=== PATIENT | female | born 1930 | race Caucasian/White ===

== ENCOUNTER 2018-03-19 14:30 | Inpatient (IN) | payer MEDICARE, OTHER ==
[~2018-03-19] VITALS: Ht 157.5 cm; Wt 76.7 kg
[2018-03-19 22:05] VITALS: BP 144/44
--- NOTE | 2018-03-19 22:30 | NUR ---
Admitted patient from [place] with diagnosis UTI and acute renal failure. Patient arrived @0 via gurney by ambulans. Family was with her. Condition fair. VS: T: 97.6, OK:72, RR: 18, O2 SAT: 93%, BP: 144/44. Dr. So was aware of admission. Medication reconciliation done, called [facility] on-call doctor, but Dr. Perkins preferred to do it at morning. MRSA swap done, physical assessment done. History taken from the family. Pictures taken and placed in the chart. Oriented patient to the unit. safety precaution maintained, Fall prevention observed. Bed in low position, side rails up x3, alarm and brake on. Call light and personal belonging within reach. Continue to monitor.
[2018-03-19] MEDS ORDERED: LOPE2CAP PO (23:46)
[2018-03-19] MEDS ORDERED: ACET-73 PO (23:46)
[2018-03-19] MEDS ORDERED: BISM262O49 PO (23:46)
[2018-03-19] MEDS ORDERED: ASCO500C18 PO (23:46)
[2018-03-19] MEDS ORDERED: DOCU250C14 PO (23:46)
[2018-03-19] MEDS ORDERED: CARB25TA3 PO (23:46)
[2018-03-19] MEDS ORDERED: MAGN400O6 PO (23:46)
[2018-03-19] MEDS ORDERED: ATOR20TA PO (23:46)
[2018-03-19] MEDS ORDERED: ALPH1TAB9 PO (23:46)
[2018-03-19] MEDS ORDERED: LEVO25TA9 PO (23:46)
[2018-03-19] MEDS ORDERED: LINA5TAB PO (23:46)
[2018-03-19] MEDS ORDERED: FLUT1BLS IH (23:46)
[2018-03-19] MEDS ORDERED: BLOO-668 IN (23:46)
[2018-03-19] MEDS ORDERED: CALC500T13 PO (23:46)
[2018-03-19] MEDS ORDERED: CRAN450T9 PO (23:46)
[2018-03-19] MEDS ORDERED: ASPI-605 PO (23:46)
[2018-03-19] MEDS ORDERED: GUAI600T53 PO (23:46)
[2018-03-19] MEDS ORDERED: ESOM40CA PO (23:46)
[2018-03-19] MEDS ORDERED: ERGO500014 PO (23:46)
[2018-03-19] MEDS ORDERED: CARB-93 PO ×2 (23:46)
[2018-03-19] MEDS ORDERED: IPRA4AER IH (23:46)
[2018-03-19] MEDS ORDERED: GUAI100S4 PO (23:46)
[2018-03-19] MEDS ORDERED: BISM262O28 PO (23:46)
[2018-03-19] MEDS ORDERED: ESTR42.5 VG (23:46)
[2018-03-19] MEDS ORDERED: FURO20TA4 PO (23:46)
[2018-03-19] MEDS ORDERED: TRAM50TA2 PO (23:47)
[2018-03-19] MEDS ORDERED: ROPI1TAB2 PO (23:47)
[2018-03-19] MEDS ORDERED: VITA-287 PO (23:47)
[2018-03-19] MEDS ORDERED: MAGN250T37 PO (23:47)
[2018-03-19] MEDS ORDERED: POLY15DR27 OP (23:47)
[2018-03-19] MEDS ORDERED: ROPI0.5T PO (23:47)
[2018-03-19] MEDS ORDERED: MELA3TAB PO (23:47)
[2018-03-19] MEDS ORDERED: VIT1CAPS44 PO (23:47)
[2018-03-19] MEDS ORDERED: SIME80TA14 PO ×2 (23:47)
[2018-03-19] MEDS ORDERED: NAPR220T PO (23:47)
[2018-03-19] MEDS ORDERED: ONDA4TAB5 GT (23:47)
[2018-03-20] MEDS ORDERED: Z GUARD REMEDY PASTE 57 GM TUBE TOP PRN (00:15)
--- NOTE | 2018-03-20 06:16 | NUR ---
End of the shift note Patient was stable throughout the shift but did not have a good sleep last night, was confused and tried to get out of bed. No sign of acute distress or SOB noted. No Complain of pain. Safety measures maintained. All needs anticipated promptly. Fall precaution maintained. Bed in low position, brake and alarm on, side rails up x3. Call light and personal belongings within reach. Continue to monitor and will endorse to the day shift nurse accordingly.
[2018-03-20 06:30] VITALS: BP 162/64
[2018-03-20 08:16] VITALS: BP 154/75
[2018-03-20] MEDS ORDERED: BISMUTH SUBSALICYLATE 262 MG/15 ML UDC PO PRN ×2 (10:15)
[2018-03-20] MEDS ORDERED: NAPROXEN SODIUM 220 MG PO SCH (10:15)
[2018-03-20] MEDS ORDERED: LOPERAMIDE HCL 2 MG CAPSULE PO PRN (10:15)
[2018-03-20] MEDS ORDERED: GUAIFENESIN SUGAR FREE 100 MG/5 ML UDC PO PRN (10:15)
[2018-03-20] MEDS ORDERED: GUAIFENESIN LA 600 MG TABLET.SA PO PRN (10:15)
[2018-03-20] MEDS ORDERED: ONDANSETRON HCL 4 MG TABLET GT PRN (10:15)
[2018-03-20] MEDS ORDERED: SIMETHICONE 80 MG TAB.CHEW PO PRN (10:15)
[2018-03-20] MEDS ORDERED: ALPHA D GALACTOSIDASE 150 UNIT PO PRN (10:15)
[2018-03-20] MEDS ORDERED: DEXTROSE 50% 50 ML DISP.SYRIN IV PRN ×2 (10:30→12:30)
[2018-03-20] MEDS: ERGOCALCIFEROL 50,000 UNIT CAPSULE PO SCH (11:00)
[2018-03-20] MEDS: BLOOD SUGAR DIAGNOSTIC 1 EACH STRIP VI SCH ×3 (12:24→21:04)
[2018-03-20] MEDS ORDERED: INSULIN REGULAR, HUMAN 300 UNIT/3 ML VIAL SQ PRN (12:30)
[2018-03-20] MEDS: POLYVINYL ALCOHOL OPHT DROPS 15 ML BOTTLE OP SCH ×3 (12:55→21:01)
[2018-03-20] MEDS: CARBIDOPA/LEVODOPA 25-100MG TABLET PO SCH ×2 (13:00→16:42)
[2018-03-20] MEDS ORDERED: CARBIDOPA 25 MG PO SCH (13:00)
[2018-03-20 16:07] VITALS: BP 144/75
[2018-03-20] MEDS ORDERED: BLOOD SUGAR DIAGNOSTIC 1 EACH STRIP VI SCH (16:30)
[2018-03-20] MEDS: BETA CAROTENE/VIT C & E/MIN TABLET PO SCH (16:37)
[2018-03-20] MEDS: CEphaleXIN 500 MG CAPSULE PO SCH (16:41)
[2018-03-20] MEDS: ropiniROLE 0.5 MG TABLET PO SCH (16:43)
[2018-03-20] MEDS ORDERED: SIMETHICONE 80 MG TAB.CHEW PO SCH (17:00)
[2018-03-20] MEDS ORDERED: Medication Not On Formulary EA (Vit C/E/Zn/Coppr/Lutein/Zeaxan (Preservision Areds 2 Sof PO SCH (17:00)
--- NOTE | 2018-03-20 18:24 | NUR ---
patient is alert and oriented x2, up with PT shower given by PT,compliant with all medication .turn and reposition for comfort.will continue close monitoring.
--- NOTE | 2018-03-20 19:15 | NUR ---
Received patient sleeping during initial rounds.No s/s of pain/discomforts.HOB elevated with O2 2L/min via NC,saturating 94% at this time. Family at beside asking a lot of questions and concerns..Safety measures and fall precaution maintained. Continue care as planned.
[2018-03-20 19:30] VITALS: BP 142/55
[2018-03-20] MEDS: ATORVASTATIN 20 MG TABLET PO SCH (21:01)
[2018-03-20] MEDS: ropiniROLE 1 MG TABLET PO SCH (21:01)
[2018-03-20] MEDS: INSULIN REGULAR, HUMAN 300 UNIT/3 ML VIAL SQ PRN (21:07)
--- NOTE | 2018-03-21 03:09 | NUR ---
Still awake, confused, asking somebody to play Bingo with her, naked, removed her gown, diaper and O2. Re oriented to time and situation. Safety measure and fall precaution maintained.
[2018-03-21 04:30] VITALS: BP 163/71
[2018-03-21] MEDS: TRAMADOL HCL 50 MG TABLET PO PRN (06:26)
[2018-03-21] MEDS: LEVOTHYROXINE SODIUM 75 MCG TABLET PO SCH (06:29)
[2018-03-21] MEDS: BLOOD SUGAR DIAGNOSTIC 1 EACH STRIP VI SCH ×4 (06:37→20:34)
--- NOTE | 2018-03-21 07:04 | NUR ---
Shift End Report: Slept intermittently. Confused and disoriented. Medicated once for generalized pain. No further complaint presented. No fall/injury. All needs attended and met. No significant event reported all night. Continue current rehab plan of care.
[2018-03-21 07:17] LABS: BASOPHILS # (AUTO) 0.1 K/uL (0.0-8.0); BASOPHILS % (AUTO) 0.9 % (0.0-2.0); EOSINOPHILS # (AUTO) 0.2 K/uL (0.0-0.7); EOSINOPHILS % (AUTO) 2.3 % (0.0-7.0); HEMATOCRIT 35.9 % (31.2-41.9); LYMPHOCYTES # (AUTO) 1.1 K/uL (20.0-40.0); LYMPHOCYTES % (AUTO) 12.4 % (20.5-51.5); MEAN CORPUSCULAR HEMOGLOBIN 30.5 uug (24.7-32.8); MEAN CORPUSCULAR HGB CONC 34 g/dL (32.3-35.6); MEAN CORPUSCULAR VOLUME 91.2 fL (75.5-95.3); MONOCYTES # (AUTO) 0.7 K/uL (2.0-10.0); MONOCYTES % (AUTO) 8.4 % (0.0-11.0); NEUTROPHILS # (AUTO) 6.8 K/uL (1.8-8.9); PLATELET COUNT (AUTO) 137 K/uL (179-408); RED BLOOD CELL COUNT(AUTO) 3.94 MIL/uL (3.63-4.92); WHITE BLOOD COUNT (AUTO) 8.9 K/uL (3.8-11.8)
[2018-03-21 07:44] LABS: ALANINE AMINOTRANSFERASE 24 U/L (14-59); ALKALINE PHOSPHATASE 65 U/L (50-136); ASPARTATE AMINOTRANSFERASE 20 U/L (15-37); BILIRUBIN,TOTAL 0.7 mg/dL (0.2-1.0); CARBON DIOXIDE 25 mmol/L (21-32); CHLORIDE 106 mmol/L (98-107); GLUCOSE 111 mg/dL (74-106); MAGNESIUM 1.7 mg/dL (1.8-2.4); PHOSPHOROUS 2.5 mg/dL (2.5-4.9); POTASSIUM 3.5 mmol/L (3.5-5.1); TOTAL PROTEIN, SERUM 6.4 g/dL (6.4-8.2); UREA NITROGEN, BLOOD 11 mg/dL (7-18)
[2018-03-21 08:00] VITALS: BP 152/71
[2018-03-21] MEDS: FLUTICASONE/VILANTEROL 1 EACH BLST.W.DEV IH SCH (08:44)
[2018-03-21] MEDS: CARBIDOPA/LEVODOPA 25-100MG TABLET PO SCH ×4 (08:44→16:12)
[2018-03-21] MEDS: POLYVINYL ALCOHOL OPHT DROPS 15 ML BOTTLE OP SCH ×4 (08:44→20:33)
[2018-03-21] MEDS: BETA CAROTENE/VIT C & E/MIN TABLET PO SCH ×2 (08:45→16:12)
[2018-03-21] MEDS: ASPIRIN EC 81 MG TABLET.DR PO SCH (08:45)
[2018-03-21] MEDS: LINAGLIPTIN 5 MG TABLET PO SCH (08:45)
[2018-03-21] MEDS: VITAMIN B COMPLEX 1 TABLET PO SCH (08:45)
[2018-03-21] MEDS: FUROSEMIDE 20 MG TABLET PO SCH (08:45)
[2018-03-21] MEDS: CEphaleXIN 500 MG CAPSULE PO SCH ×2 (08:45→16:12)
[2018-03-21] MEDS: MAGNESIUM OXIDE 250 MG TABLET PO SCH (08:46)
[2018-03-21] MEDS: ropiniROLE 0.5 MG TABLET PO SCH ×2 (08:46→16:12)
[2018-03-21] MEDS: INSULIN REGULAR, HUMAN 300 UNIT/3 ML VIAL SQ PRN ×2 (08:50→16:14)
[2018-03-21] MEDS ORDERED: Medication Not On Formulary EA (Vitamin B Complex (B Complex) 1 EACH) PO SCH (09:00)
[2018-03-21] MEDS ORDERED: LEVOTHYROXINE SODIUM 25 MCG TABLET PO SCH (09:00)
[2018-03-21] MEDS ORDERED: CLONIDINE HCL 0.1 MG TABLET PO PRN (09:30)
[2018-03-21] MEDS ORDERED: MAGNESIUM OXIDE 400 MG TABLET PO ONE (09:30)
--- NOTE | 2018-03-21 10:46 | NUR ---
Received SBAR report from rn shift mgr RN. Pt A/Ox1-2, with intermittent confusion. No SOB or acute distress noted, currently on O2 @ 2LPM via NC. Administered all due medications as ordered and tolerated well. Fall precautions in place. Bed in locked and lowest position with side rails up x2, alarm on. Call light within reach. Will continue to monitor.
[2018-03-21 16:14] VITALS: BP 146/75
--- NOTE | 2018-03-21 18:20 | NUR ---
EOS Note: No significant change during this shift. All due medications administered as ordered and tolerated well. Touchbase with Dayna - DTR to f/u on pt. Premarin, per DTR she will provide medication to facility. Denies SOB or CP, on 2 LPM via NC tolerating well. On PO ATB for UTI with no ASE noted. No s/sx of hypo/hyperglycemia. Mag Oxide (800 mg PO) x1 administered for low mg (1.7) lv. 2X upper side rails up as enabler for bed positioning and mobility. BM x 1 during this shift. Call light and all frequently used items within pt. reach. Will endorse to oncoming shift accordingly. Addendum: 03/21/18 at 1841 by AUGUSTINE CONNOLLY RN No BM during this shift. PRN Colace and MOM given for constipation. Will monitor for effectiveness.
[2018-03-21] MEDS: DOCUSATE SODIUM 250 MG CAPSULE PO PRN (18:30)
[2018-03-21] MEDS: MAGNESIUM HYDROXIDE 30 ML LIQUID UDC PO PRN (18:30)
[2018-03-21 19:30] VITALS: BP 134/67
[2018-03-21] MEDS: ATORVASTATIN 20 MG TABLET PO SCH (20:33)
[2018-03-21] MEDS: ropiniROLE 1 MG TABLET PO SCH (20:33)
[2018-03-21] MEDS ORDERED: AMOXICILLIN-CLAVUL 500-125MG TABLET PO SCH (21:00)
--- NOTE | 2018-03-21 21:42 | NUR ---
Patient received in bed resting comfortably. Patient alert and oriented times 1-2 . Noted to be confused. No SOB or acute distress noted. No pain noted at this time. Administered all due medications as ordered and tolerated well. Fall precautions in place. Bed in locked and lowest position with side rails up x2, alarm on. Call light and frequently used items within reach. Will continue to monitor.
[2018-03-22 05:30] VITALS: BP 152/65
[2018-03-22] MEDS: LEVOTHYROXINE SODIUM 75 MCG TABLET PO SCH (06:17)
[2018-03-22] MEDS: BLOOD SUGAR DIAGNOSTIC 1 EACH STRIP VI SCH ×4 (06:32→21:49)
--- NOTE | 2018-03-22 06:50 | NUR ---
End of Shift Note: No significant change of shift. All due medications given-tolerated well. Denies SOB or CP, on 2 LPM via nasal canula. On PO ATB for UTI with no ASE noted. No s/sx of hypo/hyperglycemia. 2X upper side rails up as enabler for bed positioning and mobility. Call light and all frequently used items within pt. reach. Will endorse to oncoming shift accordingly.
[2018-03-22 08:15] VITALS: BP 152/67
--- NOTE | 2018-03-22 08:15 | NUR ---
Received patient, awake, alert x2. On O2 at 2LPM, tolerating well. Not in any form of distress. Not in apparent pain.
--- NOTE | 2018-03-22 09:00 | NUR ---
Up with physical therapy, tolerating well. On O2 at 2LPM.
[2018-03-22] MEDS: LINAGLIPTIN 5 MG TABLET PO SCH (09:16)
[2018-03-22] MEDS: FUROSEMIDE 20 MG TABLET PO SCH (09:17)
[2018-03-22] MEDS: CARBIDOPA/LEVODOPA 25-100MG TABLET PO SCH ×4 (09:17→17:14)
[2018-03-22] MEDS: FLUTICASONE/VILANTEROL 1 EACH BLST.W.DEV IH SCH (09:17)
[2018-03-22] MEDS: CEphaleXIN 500 MG CAPSULE PO SCH ×2 (09:18→17:13)
[2018-03-22] MEDS: ASPIRIN EC 81 MG TABLET.DR PO SCH (09:18)
[2018-03-22] MEDS: ropiniROLE 0.5 MG TABLET PO SCH ×2 (09:18→17:13)
[2018-03-22] MEDS: MAGNESIUM OXIDE 250 MG TABLET PO SCH (09:18)
[2018-03-22] MEDS: POLYVINYL ALCOHOL OPHT DROPS 15 ML BOTTLE OP SCH ×4 (09:18→21:49)
[2018-03-22] MEDS: VITAMIN B COMPLEX 1 TABLET PO SCH (09:19)
[2018-03-22] MEDS: BETA CAROTENE/VIT C & E/MIN TABLET PO SCH ×2 (09:19→17:14)
[2018-03-22] MEDS ORDERED: MAGNESIUM OXIDE 400 MG TABLET PO ONE (10:26)
--- NOTE | 2018-03-22 11:06 | NUR ---
INTERDISCIPLINARY TEAM CONFERENCE
[2018-03-22] MEDS: INSULIN REGULAR, HUMAN 300 UNIT/3 ML VIAL SQ PRN (11:35)
[2018-03-22] MEDS: TRAMADOL HCL 50 MG TABLET PO PRN (15:50)
[2018-03-22 18:41] VITALS: BP 141/62
[2018-03-22 21:23] VITALS: BP 128/59
[2018-03-22] MEDS: ATORVASTATIN 20 MG TABLET PO SCH (21:49)
[2018-03-22] MEDS: ropiniROLE 1 MG TABLET PO SCH (21:54)
--- NOTE | 2018-03-22 22:00 | NUR ---
BLADDER SCAN DONE RECOMMENDED WITH 134 ML OF URINE
[2018-03-23 04:51] VITALS: BP 136/54
[2018-03-23] MEDS: LEVOTHYROXINE SODIUM 75 MCG TABLET PO SCH (06:10)
[2018-03-23] MEDS: BLOOD SUGAR DIAGNOSTIC 1 EACH STRIP VI SCH ×4 (06:38→21:00)
--- NOTE | 2018-03-23 06:39 | NUR ---
PATIENT INTERMITTENTLY SLEEPING. NO C/O OF PAIN OR ANY DISCOMFORT. BS CHECK DONE WITH RESULT 88.
[2018-03-23] MEDS: CARBIDOPA/LEVODOPA 25-100MG TABLET PO SCH ×4 (09:08→16:29)
[2018-03-23] MEDS: DOCUSATE SODIUM 250 MG CAPSULE PO PRN (09:08)
[2018-03-23] MEDS: LINAGLIPTIN 5 MG TABLET PO SCH (09:08)
[2018-03-23] MEDS: FUROSEMIDE 20 MG TABLET PO SCH (09:08)
[2018-03-23] MEDS: CEphaleXIN 500 MG CAPSULE PO SCH ×2 (09:08→16:28)
[2018-03-23] MEDS: ASPIRIN EC 81 MG TABLET.DR PO SCH (09:08)
[2018-03-23] MEDS: FLUTICASONE/VILANTEROL 1 EACH BLST.W.DEV IH SCH (09:09)
[2018-03-23] MEDS: BETA CAROTENE/VIT C & E/MIN TABLET PO SCH ×2 (09:09→16:30)
[2018-03-23] MEDS: VITAMIN B COMPLEX 1 TABLET PO SCH (09:09)
[2018-03-23] MEDS: MAGNESIUM OXIDE 250 MG TABLET PO SCH (09:09)
[2018-03-23] MEDS: POLYVINYL ALCOHOL OPHT DROPS 15 ML BOTTLE OP SCH ×4 (09:09→21:29)
[2018-03-23] MEDS: ropiniROLE 0.5 MG TABLET PO SCH ×2 (09:45→16:28)
--- NOTE | 2018-03-23 09:57 | NUR ---
Received SBAR report from plant operator/shift supervisor RN. Pt A/Ox1-2, with baseline confusion, responsive to verbal and tactile stimuli. No SOB or acute distress noted, currently on O2 @ 2LPM via NC. Administered all due medications as ordered and tolerated well. On PO ABX for UTI with no ASE noted. Noted with good self expression/impulse control. Fall precautions in place. Bed in locked and lowest position with side rails up x2, alarm on. Call light within reach. Will continue to monitor.
[2018-03-23 10:51] VITALS: BP 141/61
[2018-03-23] MEDS: INSULIN REGULAR, HUMAN 300 UNIT/3 ML VIAL SQ PRN ×2 (11:10→16:36)
[2018-03-23 16:00] VITALS: BP 127/61
--- NOTE | 2018-03-23 18:27 | NUR ---
EOS Note: No significant change during this shift. All due medications administered as ordered and tolerated well. Touchbase with Dayna - DTR to f/u on pt. Premarin, per DTR she was busy to bring meds, will ask friend to drop of medication today. 1400 bladder scan performed 26 ml, pt. voiding well with no bladder distention noted. Denies SOB or CP, on 2 LPM via NC tolerating well. On PO ATB for UTI with no ASE noted. No s/sx of hypo/hyperglycemia. 2X upper side rails up as enabler for bed positioning and mobility. Call light and all frequently used items within pt. reach. Will endorse to oncoming shift accordingly.
[2018-03-23 20:49] VITALS: BP 122/60
[2018-03-23] MEDS: ropiniROLE 1 MG TABLET PO SCH (21:29)
[2018-03-23] MEDS: ATORVASTATIN 20 MG TABLET PO SCH (21:29)
--- NOTE | 2018-03-23 21:30 | NUR ---
Nursin hr Jessica dropped off Premarin vaginal cream. 2099 unable to administer due to pharmacy needs to sign off on the medicine and has the facility. I will endorse to am shift nurse that the cream is now in her medication cassette and needs to be signed off from the Rx.
--- NOTE | 2018-03-23 22:00 | NUR ---
Bladder scan done 63 cc risdual after voiding
[2018-03-23] MEDS: MAGNESIUM HYDROXIDE 30 ML LIQUID UDC PO PRN (22:44)
[2018-03-24] MEDS: TRAMADOL HCL 50 MG TABLET PO PRN ×2 (03:17→03:57)
[2018-03-24 05:43] VITALS: BP 120/55
[2018-03-24] MEDS: LEVOTHYROXINE SODIUM 75 MCG TABLET PO SCH (06:17)
--- NOTE | 2018-03-24 06:50 | NUR ---
END of Shift report: Denies of any distress. Diapers clean and dry. Siderails up call light within reach. Bladder scan 26 cc @ 0600. Remain stable.
[2018-03-24 07:22] LABS: BASOPHILS % (AUTO) 0.7 % (0.0-2.0); EOSINOPHILS # (AUTO) 0.2 K/uL (0.0-0.7); EOSINOPHILS % (AUTO) 3.3 % (0.0-7.0); HEMATOCRIT 35.3 % (31.2-41.9); HEMOGLOBIN 11.9 g/dL (10.9-14.3); LYMPHOCYTES # (AUTO) 1.1 K/uL (20.0-40.0); MEAN CORPUSCULAR HEMOGLOBIN 31.1 uug (24.7-32.8); MEAN CORPUSCULAR HGB CONC 34 g/dL (32.3-35.6); MEAN CORPUSCULAR VOLUME 92.6 fL (75.5-95.3); MONOCYTES # (AUTO) 0.5 K/uL (2.0-10.0); MONOCYTES % (AUTO) 7.1 % (0.0-11.0); NEUTROPHILS % (AUTO) 72.9 % (38.5-71.5); PLATELET COUNT (AUTO) 183 K/uL (179-408); RED BLOOD CELL COUNT(AUTO) 3.81 MIL/uL (3.63-4.92); WHITE BLOOD COUNT (AUTO) 6.9 K/uL (3.8-11.8)
[2018-03-24] MEDS: BLOOD SUGAR DIAGNOSTIC 1 EACH STRIP VI SCH ×4 (07:35→21:21)
[2018-03-24] MEDS: INSULIN REGULAR, HUMAN 300 UNIT/3 ML VIAL SQ PRN ×3 (07:35→16:32)
[2018-03-24 07:50] LABS: CARBON DIOXIDE 29 mmol/L (21-32); CHLORIDE 104 mmol/L (98-107); CREATININE 1.1 mg/dL (0.6-1.3); GLUCOSE 107 mg/dL (74-106); PHOSPHOROUS 3.1 mg/dL (2.5-4.9); UREA NITROGEN, BLOOD 19 mg/dL (7-18)
[2018-03-24] MEDS: CARBIDOPA/LEVODOPA 25-100MG TABLET PO SCH ×4 (08:33→16:28)
[2018-03-24 08:34] VITALS: BP 150/75
[2018-03-24] MEDS: LINAGLIPTIN 5 MG TABLET PO SCH (08:34)
[2018-03-24] MEDS: POLYVINYL ALCOHOL OPHT DROPS 15 ML BOTTLE OP SCH ×4 (08:34→21:13)
[2018-03-24] MEDS: FUROSEMIDE 20 MG TABLET PO SCH (08:34)
[2018-03-24] MEDS: ASPIRIN EC 81 MG TABLET.DR PO SCH (08:34)
[2018-03-24] MEDS: CEphaleXIN 500 MG CAPSULE PO SCH ×2 (08:34→16:28)
[2018-03-24] MEDS: FLUTICASONE/VILANTEROL 1 EACH BLST.W.DEV IH SCH (08:34)
[2018-03-24] MEDS: VITAMIN B COMPLEX 1 TABLET PO SCH (08:35)
[2018-03-24] MEDS: BETA CAROTENE/VIT C & E/MIN TABLET PO SCH ×2 (08:35→16:28)
[2018-03-24] MEDS: ropiniROLE 0.5 MG TABLET PO SCH ×2 (08:35→16:28)
[2018-03-24] MEDS: MAGNESIUM OXIDE 250 MG TABLET PO SCH (08:35)
--- NOTE | 2018-03-24 09:21 | NUR ---
Received SBAR report from slot shift supervisor RN. Pt A/Ox1-2, with baseline confusion, responsive to verbal and tactile stimuli. No SOB or acute distress noted, currently on O2 @ 2LPM via NC. Administered all due medications as ordered and tolerated well. On PO ABX for UTI with no ASE noted. Noted with good self expression/impulse control. Pt. moved from room 118 to 106 by previous shift for safety precaution. Will touchbase with provider to obtain supp order for constipation. Premarin medication brought in by family and sent to pharmacy for verification. Fall precautions in place. Bed in locked and lowest position with side rails up x2, alarm on. Call light within reach. Will continue to monitor.
[2018-03-24] MEDS ORDERED: FLEET ENEMA 133 ML BOTTLE RC PRN (10:15)
[2018-03-24] MEDS ORDERED: BISACODYL 10 MG SUPP.RECT RC PRN (10:15)
--- NOTE | 2018-03-24 10:21 | NUR ---
Obtained dulcolax and fleet enema order from Lyndon SALMON. Received order to d/c bladder scan q8h as pt. voiding well with no retention. All orders noted and carried out accordingly. Pt. made aware of changes.
[2018-03-24] MEDS: DOCUSATE SODIUM 250 MG CAPSULE PO PRN (11:38)
[2018-03-24] MEDS: MAGNESIUM HYDROXIDE 30 ML LIQUID UDC PO PRN (11:38)
[2018-03-24 18:02] VITALS: BP 96/51
--- NOTE | 2018-03-24 18:32 | NUR ---
EOS Note: No significant change during this shift. All due medications administered as ordered and tolerated well. Pt. voiding well with no bladder distention noted. Denies SOB or CP, on 2 LPM via NC tolerating well. On PO ATB for UTI with no ASE noted. Received order from DNP to d/c LT. upper chest wall suture, orders noted and carried out accordingly. D/C'd suture, applied 3 steri strips, pt tolerated procedure well. Dulcolax supp given as ordered, pt. with small BM only. No s/sx of hypo/hyperglycemia. 2X upper side rails up as enabler for bed positioning and mobility. Call light and all frequently used items within pt. reach. Will endorse to oncoming shift accordingly.
[2018-03-24 19:56] VITALS: BP 110/41
[2018-03-24] MEDS: ESTROGENS,CONJU VAGINAL CREAM 42.5 GM TUBE VG SCH (21:13)
[2018-03-24] MEDS: ropiniROLE 1 MG TABLET PO SCH (21:13)
[2018-03-24] MEDS: ATORVASTATIN 20 MG TABLET PO SCH (21:13)
[2018-03-25] MEDS: LEVOTHYROXINE SODIUM 75 MCG TABLET PO SCH (06:40)
[2018-03-25] MEDS: BLOOD SUGAR DIAGNOSTIC 1 EACH STRIP VI SCH ×4 (06:43→20:54)
[2018-03-25 07:07] VITALS: BP 116/64
[2018-03-25 07:30] VITALS: BP 150/79
[2018-03-25] MEDS: POLYVINYL ALCOHOL OPHT DROPS 15 ML BOTTLE OP SCH ×4 (10:03→20:49)
[2018-03-25] MEDS: FLUTICASONE/VILANTEROL 1 EACH BLST.W.DEV IH SCH (10:03)
[2018-03-25] MEDS: CEphaleXIN 500 MG CAPSULE PO SCH ×2 (10:04→17:00)
[2018-03-25] MEDS: ASPIRIN EC 81 MG TABLET.DR PO SCH (10:06)
[2018-03-25] MEDS: CARBIDOPA/LEVODOPA 25-100MG TABLET PO SCH ×4 (10:06→17:16)
[2018-03-25] MEDS: LINAGLIPTIN 5 MG TABLET PO SCH (10:06)
[2018-03-25] MEDS: BETA CAROTENE/VIT C & E/MIN TABLET PO SCH ×2 (10:08→17:16)
[2018-03-25] MEDS: ropiniROLE 0.5 MG TABLET PO SCH ×2 (10:08→17:20)
[2018-03-25] MEDS: VITAMIN B COMPLEX 1 TABLET PO SCH (10:09)
[2018-03-25] MEDS: MAGNESIUM OXIDE 250 MG TABLET PO SCH (10:09)
[2018-03-25] MEDS: FUROSEMIDE 20 MG TABLET PO SCH (10:23)
[2018-03-25 15:24] VITALS: BP 131/62
--- NOTE | 2018-03-25 18:44 | NUR ---
SBAR report received from personal lines appraiser nurse. Pt assessed no s/s of acute distress or pain noted. Pt compliant with routine medication administration until evening dose of Keflex, pt refused. Pt only able to participate minimally with therapies offered and remains total assist for toileting needs. Pt clean and dry. All comfort and safety needs met promptly throughout this shift. Private caregiver remains at bedside. Bed in locked and lowest position, with alarm on and side rails up x2. AOx1 to self. Pt able to make needs known. Call light placed within reach. Will continue to monitor and endorse to oncoming nurse.
--- NOTE | 2018-03-25 19:25 | NUR ---
Received patient in bed. Alert and verbally responsive. Able to make needs known. Denies any pain and discomfort. No acute distress. No SOB. On O2 @ 2LPM. Kept clean and dry. All needs attended to promptly. Call light within reach. Will continue to monitor.
[2018-03-25 20:13] VITALS: BP 120/58
[2018-03-25] MEDS: ropiniROLE 1 MG TABLET PO SCH (20:47)
[2018-03-25] MEDS: ATORVASTATIN 20 MG TABLET PO SCH (20:47)
[2018-03-25] MEDS: TRAMADOL HCL 50 MG TABLET PO PRN (20:48)
[2018-03-25] MEDS: INSULIN REGULAR, HUMAN 300 UNIT/3 ML VIAL SQ PRN (20:57)
[2018-03-25] MEDS: ESTROGENS,CONJU VAGINAL CREAM 42.5 GM TUBE VG SCH (21:02)
[2018-03-26 05:47] VITALS: BP 138/60
[2018-03-26] MEDS: LEVOTHYROXINE SODIUM 75 MCG TABLET PO SCH (06:21)
[2018-03-26] MEDS: BLOOD SUGAR DIAGNOSTIC 1 EACH STRIP VI SCH ×4 (06:34→21:20)
[2018-03-26] MEDS: VITAMIN B COMPLEX 1 TABLET PO SCH (09:03)
[2018-03-26] MEDS: ASPIRIN/ACETAMINOPHEN/CAFFEINE TABLET PO PRN (09:03)
[2018-03-26] MEDS: MAGNESIUM OXIDE 250 MG TABLET PO SCH (09:04)
[2018-03-26] MEDS: ropiniROLE 0.5 MG TABLET PO SCH ×2 (09:04→17:55)
[2018-03-26] MEDS: CEphaleXIN 500 MG CAPSULE PO SCH ×2 (09:05→17:54)
[2018-03-26] MEDS: CARBIDOPA/LEVODOPA 25-100MG TABLET PO SCH ×4 (09:05→17:54)
[2018-03-26] MEDS: FUROSEMIDE 20 MG TABLET PO SCH (09:06)
[2018-03-26] MEDS: LINAGLIPTIN 5 MG TABLET PO SCH (09:06)
[2018-03-26] MEDS: ASPIRIN EC 81 MG TABLET.DR PO SCH (09:06)
[2018-03-26] MEDS: BETA CAROTENE/VIT C & E/MIN TABLET PO SCH ×2 (09:07→17:55)
[2018-03-26] MEDS: POLYVINYL ALCOHOL OPHT DROPS 15 ML BOTTLE OP SCH ×4 (09:07→21:16)
[2018-03-26] MEDS: FLUTICASONE/VILANTEROL 1 EACH BLST.W.DEV IH SCH (09:11)
[2018-03-26 09:34] VITALS: BP 128/44
--- NOTE | 2018-03-26 15:42 | NUR ---
CALLED MD JACOB OFFICE REGARDING NEURO CONSULT F/U. SHE IS CONFUSED AND ALTERED MENTAL STATUS PER JASVIR WANT NEURO TO F/U ON THEIR LAST VISIT BECAUSE SHE IS NOT GETTING BETTER ACCORDING TO THE FAMILY. LEFT [facility] WITH ANTOINETTE TO HAVE THE MD OR AUTOMATIC CLIPPER REVISIT AND F/U FOR HER
--- NOTE | 2018-03-26 15:54 | NUR ---
INTERDISCIPLINARY TEAM CONFERENCE
--- NOTE | 2018-03-26 16:06 | NUR ---
NEURO MARKETING ENGINEER IN TO SEE HER TESTS/LABS ORDERED
[2018-03-26 16:09] VITALS: BP 126/58
[2018-03-26 16:21] LABS: BASOPHILS # (AUTO) 0.1 K/uL (0.0-8.0); BASOPHILS % (AUTO) 1.4 % (0.0-2.0); EOSINOPHILS # (AUTO) 0.2 K/uL (0.0-0.7); EOSINOPHILS % (AUTO) 2.3 % (0.0-7.0); HEMATOCRIT 35.8 % (31.2-41.9); HEMOGLOBIN 11.9 g/dL (10.9-14.3); LYMPHOCYTES # (AUTO) 1.8 K/uL (20.0-40.0); LYMPHOCYTES % (AUTO) 17.3 % (20.5-51.5); MEAN CORPUSCULAR HEMOGLOBIN 31.1 uug (24.7-32.8); MEAN CORPUSCULAR HGB CONC 33 g/dL (32.3-35.6); MEAN CORPUSCULAR VOLUME 93.5 fL (75.5-95.3); MONOCYTES # (AUTO) 0.7 K/uL (2.0-10.0); MONOCYTES % (AUTO) 6.5 % (0.0-11.0); NEUTROPHILS # (AUTO) 7.3 K/uL (1.8-8.9); NEUTROPHILS % (AUTO) 72.5 % (38.5-71.5); PLATELET COUNT (AUTO) 192 K/uL (179-408); RED BLOOD CELL COUNT(AUTO) 3.83 MIL/uL (3.63-4.92); WHITE BLOOD COUNT (AUTO) 10.1 K/uL (3.8-11.8)
[2018-03-26 16:29] LABS: CARBON DIOXIDE 31 mmol/L (21-32); CHLORIDE 101 mmol/L (98-107); CREATININE 1.5 mg/dL (0.6-1.3); GLUCOSE 129 mg/dL (74-106); POTASSIUM 4.3 mmol/L (3.5-5.1); UREA NITROGEN, BLOOD 30 mg/dL (7-18)
[2018-03-26 16:41] LABS: ALANINE AMINOTRANSFERASE 9 U/L (14-59); ALKALINE PHOSPHATASE 58 U/L (50-136); ASPARTATE AMINOTRANSFERASE 16 U/L (15-37); BILIRUBIN,TOTAL 0.4 mg/dL (0.2-1.0); TOTAL PROTEIN, SERUM 6.7 g/dL (6.4-8.2)
[2018-03-26 17:06] LABS: BAND % (MANUAL) 1 % (0-10); EOSINOPHILS % (MANUAL) 1 % (0-8); LYMPHOCYTES % (MANUAL) 20 % (20-40); MONOCYTES % (MANUAL) 7 % (2-10); NEUTROPHILS % (MANUAL) 64 % (42-75)
[2018-03-26] MEDS: ESTROGENS,CONJU VAGINAL CREAM 42.5 GM TUBE VG SCH (21:00)
[2018-03-26] MEDS: ATORVASTATIN 20 MG TABLET PO SCH (21:17)
[2018-03-26] MEDS: ropiniROLE 1 MG TABLET PO SCH (21:17)
[2018-03-26] MEDS: INSULIN REGULAR, HUMAN 300 UNIT/3 ML VIAL SQ PRN (21:24)
[2018-03-26 21:28] VITALS: BP 115/52
[2018-03-27 04:31] VITALS: BP 146/61
[2018-03-27] MEDS: BLOOD SUGAR DIAGNOSTIC 1 EACH STRIP VI SCH ×4 (06:30→21:39)
[2018-03-27] MEDS: LEVOTHYROXINE SODIUM 75 MCG TABLET PO SCH (06:30)
[2018-03-27 07:51] LABS: BASOPHILS # (AUTO) 0.1 K/uL (0.0-8.0); BASOPHILS % (AUTO) 0.7 % (0.0-2.0); EOSINOPHILS # (AUTO) 0.2 K/uL (0.0-0.7); EOSINOPHILS % (AUTO) 2.4 % (0.0-7.0); HEMATOCRIT 36.2 % (31.2-41.9); HEMOGLOBIN 12.2 g/dL (10.9-14.3); LYMPHOCYTES # (AUTO) 1.3 K/uL (20.0-40.0); MEAN CORPUSCULAR HEMOGLOBIN 31.5 uug (24.7-32.8); MEAN CORPUSCULAR HGB CONC 34 g/dL (32.3-35.6); MEAN CORPUSCULAR VOLUME 93.5 fL (75.5-95.3); MONOCYTES # (AUTO) 0.6 K/uL (2.0-10.0); NEUTROPHILS # (AUTO) 7.3 K/uL (1.8-8.9); NEUTROPHILS % (AUTO) 76.9 % (38.5-71.5); PLATELET COUNT (AUTO) 190 K/uL (179-408); RED BLOOD CELL COUNT(AUTO) 3.87 MIL/uL (3.63-4.92); WHITE BLOOD COUNT (AUTO) 9.5 K/uL (3.8-11.8)
[2018-03-27 07:56] LABS: CARBON DIOXIDE 30 mmol/L (21-32); CHLORIDE 104 mmol/L (98-107); CREATININE 1.4 mg/dL (0.6-1.3); GLUCOSE 105 mg/dL (74-106); POTASSIUM 4.3 mmol/L (3.5-5.1)
[2018-03-27 08:05] LABS: UREA NITROGEN, BLOOD 28 mg/dL (7-18)
[2018-03-27 08:38] LABS: BAND % (MANUAL) 2 % (0-10); LYMPHOCYTES % (MANUAL) 17 % (20-40); NEUTROPHILS % (MANUAL) 70 % (42-75)
[2018-03-27 08:39] LABS: EOSINOPHILS % (MANUAL) 3 % (0-8); MONOCYTES % (MANUAL) 7 % (2-10); MYELOCYTES % 1 % (0-0)
[2018-03-27 08:55] VITALS: BP 122/55
[2018-03-27] MEDS: POLYVINYL ALCOHOL OPHT DROPS 15 ML BOTTLE OP SCH ×4 (09:01→21:33)
[2018-03-27] MEDS: FLUTICASONE/VILANTEROL 1 EACH BLST.W.DEV IH SCH (09:01)
[2018-03-27] MEDS: CARBIDOPA/LEVODOPA 25-100MG TABLET PO SCH ×4 (09:01→17:22)
[2018-03-27] MEDS: CEphaleXIN 500 MG CAPSULE PO SCH ×2 (09:01→17:22)
[2018-03-27] MEDS: ASPIRIN EC 81 MG TABLET.DR PO SCH (09:02)
[2018-03-27] MEDS: VITAMIN B COMPLEX 1 TABLET PO SCH (09:02)
[2018-03-27] MEDS: LINAGLIPTIN 5 MG TABLET PO SCH (09:02)
[2018-03-27] MEDS: MAGNESIUM OXIDE 250 MG TABLET PO SCH (09:02)
[2018-03-27] MEDS: FUROSEMIDE 20 MG TABLET PO SCH (09:02)
[2018-03-27] MEDS: ropiniROLE 0.5 MG TABLET PO SCH ×2 (09:02→17:21)
[2018-03-27] MEDS: ERGOCALCIFEROL 50,000 UNIT CAPSULE PO SCH (09:03)
[2018-03-27] MEDS: BETA CAROTENE/VIT C & E/MIN TABLET PO SCH ×2 (09:03→17:21)
--- NOTE | 2018-03-27 09:30 | NUR ---
Received patient, awake, alert x1-2. Not in any form of distress. With head ache rated as 7/10. PRN Excedrin given. Mepilex changed over left buttocks and cleansed with NS. Personal care professionals at bedside.
[2018-03-27] MEDS: ASPIRIN/ACETAMINOPHEN/CAFFEINE TABLET PO PRN (09:33)
[2018-03-27] MEDS: INSULIN REGULAR, HUMAN 300 UNIT/3 ML VIAL SQ PRN ×2 (12:01→17:21)
--- NOTE | 2018-03-27 13:58 | NUR ---
Aspiration precautions maintained. Informed caregiver. With personal day care center director at bedside. Tolerated therapy well.
[2018-03-27 16:00] VITALS: BP 101/62
--- NOTE | 2018-03-27 19:20 | NUR ---
Awake during initial round talking on her Cell phone. No s/s of pain/discomforts at this time. Safety measure and fall precaution maintained. Continue care as planned.
[2018-03-27 20:43] VITALS: BP 117/47
[2018-03-27] MEDS: ropiniROLE 1 MG TABLET PO SCH (21:33)
[2018-03-27] MEDS: ATORVASTATIN 20 MG TABLET PO SCH (21:33)
[2018-03-27] MEDS: ESTROGENS,CONJU VAGINAL CREAM 42.5 GM TUBE VG SCH (21:35)
[2018-03-28 04:25] VITALS: BP 134/51
[2018-03-28] MEDS: TRAMADOL HCL 50 MG TABLET PO PRN (04:30)
[2018-03-28] MEDS: BLOOD SUGAR DIAGNOSTIC 1 EACH STRIP VI SCH ×4 (06:46→20:59)
--- NOTE | 2018-03-28 06:51 | NUR ---
Shift End Report: Slept fairly. Medicated once for pain with relief. No further complaint presented. No s/s of hypo/hyperglycemia. No s/s of hypo/hypertension. No fall/injury. No respiratory distress presented. All needs attended and met. No significant event reported all night. Continue current rehab plan of care. VSS.
[2018-03-28] MEDS: ASPIRIN/ACETAMINOPHEN/CAFFEINE TABLET PO PRN (07:58)
[2018-03-28] MEDS: CARBIDOPA/LEVODOPA 25-100MG TABLET PO SCH ×4 (07:58→17:40)
[2018-03-28] MEDS: LINAGLIPTIN 5 MG TABLET PO SCH (07:58)
[2018-03-28 08:00] VITALS: BP 122/47
[2018-03-28] MEDS: VITAMIN B COMPLEX 1 TABLET PO SCH (08:07)
[2018-03-28] MEDS: ropiniROLE 0.5 MG TABLET PO SCH ×2 (08:07→17:41)
[2018-03-28] MEDS: BETA CAROTENE/VIT C & E/MIN TABLET PO SCH ×2 (08:07→17:40)
[2018-03-28] MEDS: FUROSEMIDE 20 MG TABLET PO SCH (08:08)
[2018-03-28] MEDS: CEphaleXIN 500 MG CAPSULE PO SCH ×2 (08:08→17:39)
[2018-03-28] MEDS: MAGNESIUM OXIDE 250 MG TABLET PO SCH (08:08)
[2018-03-28] MEDS: FLUTICASONE/VILANTEROL 1 EACH BLST.W.DEV IH SCH (08:09)
[2018-03-28] MEDS: POLYVINYL ALCOHOL OPHT DROPS 15 ML BOTTLE OP SCH ×4 (08:09→21:00)
[2018-03-28] MEDS: ASPIRIN EC 81 MG TABLET.DR PO SCH (10:21)
[2018-03-28] MEDS: LEVOTHYROXINE SODIUM 75 MCG TABLET PO SCH (10:24)
[2018-03-28 16:00] VITALS: BP 95/50
--- NOTE | 2018-03-28 19:10 | NUR ---
Awake during initial rounds, watching TV. Denies any pain/discomforts. No s/s of hypo/hyperglycemia. Safety measures and fall precaution maintained. Continue care as planned.
[2018-03-28 20:37] VITALS: BP 98/57
[2018-03-28] MEDS: ropiniROLE 1 MG TABLET PO SCH (20:55)
[2018-03-28] MEDS: ATORVASTATIN 20 MG TABLET PO SCH (20:55)
[2018-03-28] MEDS: ESTROGENS,CONJU VAGINAL CREAM 42.5 GM TUBE VG SCH (20:56)
[2018-03-29 05:05] VITALS: BP 106/56
--- NOTE | 2018-03-29 05:30 | NUR ---
Shift End Report: VSS. No complaint presented all night. Slept in between care. Made comfortable at all times. No s/s of hypo/hyperglycemia. No significant event reported all night. All needs attended and met. Continue current rehab plan of care.
[2018-03-29] MEDS: LEVOTHYROXINE SODIUM 75 MCG TABLET PO SCH (06:30)
[2018-03-29] MEDS: BLOOD SUGAR DIAGNOSTIC 1 EACH STRIP VI SCH ×4 (06:30→21:04)
[2018-03-29 07:33] LABS: BASOPHILS # (AUTO) 0.1 K/uL (0.0-8.0); BASOPHILS % (AUTO) 0.7 % (0.0-2.0); EOSINOPHILS # (AUTO) 0.2 K/uL (0.0-0.7); EOSINOPHILS % (AUTO) 2.7 % (0.0-7.0); HEMATOCRIT 34.4 % (31.2-41.9); HEMOGLOBIN 11.4 g/dL (10.9-14.3); LYMPHOCYTES # (AUTO) 1.7 K/uL (20.0-40.0); LYMPHOCYTES % (AUTO) 19.1 % (20.5-51.5); MEAN CORPUSCULAR HGB CONC 33 g/dL (32.3-35.6); MEAN CORPUSCULAR VOLUME 93.4 fL (75.5-95.3); MONOCYTES # (AUTO) 0.6 K/uL (2.0-10.0); MONOCYTES % (AUTO) 7.1 % (0.0-11.0); NEUTROPHILS # (AUTO) 6.2 K/uL (1.8-8.9); NEUTROPHILS % (AUTO) 70.4 % (38.5-71.5); PLATELET COUNT (AUTO) 194 K/uL (179-408); RED BLOOD CELL COUNT(AUTO) 3.68 MIL/uL (3.63-4.92); WHITE BLOOD COUNT (AUTO) 8.8 K/uL (3.8-11.8)
--- NOTE | 2018-03-29 07:46 | NUR ---
Patient noted resting in bed with eyes closed, no facial cues of pain noted, no signs of distress noted, call light noted in reach, bed locked and in lowest position, all needs met at this time.
[2018-03-29 07:53] LABS: CARBON DIOXIDE 30 mmol/L (21-32); CHLORIDE 103 mmol/L (98-107); CREATININE 1.5 mg/dL (0.6-1.3); GLUCOSE 99 mg/dL (74-106); MAGNESIUM 2.1 mg/dL (1.8-2.4); PHOSPHOROUS 3.3 mg/dL (2.5-4.9); POTASSIUM 4.4 mmol/L (3.5-5.1); UREA NITROGEN, BLOOD 26 mg/dL (7-18)
[2018-03-29 08:00] VITALS: BP 154/74
[2018-03-29] MEDS: FUROSEMIDE 20 MG TABLET PO SCH (08:50)
[2018-03-29] MEDS: CEphaleXIN 500 MG CAPSULE PO SCH ×2 (08:50→16:37)
[2018-03-29] MEDS: CARBIDOPA/LEVODOPA 25-100MG TABLET PO SCH ×4 (08:51→16:37)
[2018-03-29] MEDS: POLYVINYL ALCOHOL OPHT DROPS 15 ML BOTTLE OP SCH ×4 (08:51→21:00)
[2018-03-29] MEDS: FLUTICASONE/VILANTEROL 1 EACH BLST.W.DEV IH SCH (08:51)
[2018-03-29] MEDS: LINAGLIPTIN 5 MG TABLET PO SCH (08:51)
[2018-03-29] MEDS: ASPIRIN EC 81 MG TABLET.DR PO SCH (08:51)
[2018-03-29] MEDS: ropiniROLE 0.5 MG TABLET PO SCH ×2 (08:52→16:38)
[2018-03-29] MEDS: VITAMIN B COMPLEX 1 TABLET PO SCH (08:53)
[2018-03-29] MEDS: BETA CAROTENE/VIT C & E/MIN TABLET PO SCH ×2 (08:53→16:38)
[2018-03-29] MEDS: MAGNESIUM OXIDE 250 MG TABLET PO SCH (08:53)
[2018-03-29] MEDS: ASPIRIN/ACETAMINOPHEN/CAFFEINE TABLET PO PRN ×2 (08:53→16:38)
[2018-03-29 16:28] VITALS: BP 127/72
--- NOTE | 2018-03-29 18:49 | NUR ---
No changes noted this shift, continues on 2 liters of oxygen via nasal cannula, took all medications, all needs met
--- NOTE | 2018-03-29 20:11 | NUR ---
SBAR report received from AM shift nurse. Pt assessed, AAO x /. Pt able to make needs known. PM care done. No pain reported at this time. Pt compliant with routine medication administration. Patient on 2L of O2 at this time. PM Vital Signs refused to be taken at this time. All safety and comfort needs met promptly. Bed in locked and lowest position, with call light and personal belonging within reach. Will continue to monitor.
[2018-03-29 20:54] VITALS: BP 0/0
[2018-03-29] MEDS: ATORVASTATIN 20 MG TABLET PO SCH (21:00)
[2018-03-29] MEDS: ESTROGENS,CONJU VAGINAL CREAM 42.5 GM TUBE VG SCH (21:01)
[2018-03-29] MEDS: ropiniROLE 1 MG TABLET PO SCH (21:02)
[2018-03-30] MEDS: TRAMADOL HCL 50 MG TABLET PO PRN (01:38)
[2018-03-30 05:01] VITALS: BP 117/62
[2018-03-30] MEDS: LEVOTHYROXINE SODIUM 75 MCG TABLET PO SCH (06:05)
[2018-03-30] MEDS: BLOOD SUGAR DIAGNOSTIC 1 EACH STRIP VI SCH ×2 (06:36→11:14)
--- NOTE | 2018-03-30 06:38 | NUR ---
End of Shift Report: No significant change during shift. Patient slept on and off throughout the night. Tramadol given at 0130 for management of pain. No SOB or distress noted during this shift. All needs attended to and met promptly. All due medications given-tolerated well. No s/s of hypo-hyperglycemia at this time. Call light and frequently used items within reach. Will endorse to oncoming shift accordingly.
[2018-03-30 07:49] VITALS: BP 109/48
[2018-03-30] MEDS: ASPIRIN EC 81 MG TABLET.DR PO SCH (08:33)
[2018-03-30] MEDS: FUROSEMIDE 20 MG TABLET PO SCH (08:33)
[2018-03-30] MEDS: ASPIRIN/ACETAMINOPHEN/CAFFEINE TABLET PO PRN (08:33)
[2018-03-30] MEDS: BETA CAROTENE/VIT C & E/MIN TABLET PO SCH (08:33)
[2018-03-30] MEDS: MAGNESIUM OXIDE 250 MG TABLET PO SCH (08:33)
[2018-03-30] MEDS: ropiniROLE 0.5 MG TABLET PO SCH (08:33)
[2018-03-30] MEDS: CEphaleXIN 500 MG CAPSULE PO SCH (08:33)
[2018-03-30] MEDS: VITAMIN B COMPLEX 1 TABLET PO SCH (08:33)
[2018-03-30] MEDS: CARBIDOPA/LEVODOPA 25-100MG TABLET PO SCH ×3 (08:33→14:00)
[2018-03-30] MEDS: LINAGLIPTIN 5 MG TABLET PO SCH (08:33)
[2018-03-30] MEDS: FLUTICASONE/VILANTEROL 1 EACH BLST.W.DEV IH SCH (08:34)
[2018-03-30] MEDS: POLYVINYL ALCOHOL OPHT DROPS 15 ML BOTTLE OP SCH ×2 (08:34→14:00)
[2018-03-30] MEDS: INSULIN REGULAR, HUMAN 300 UNIT/3 ML VIAL SQ PRN ×2 (08:35→11:14)
--- NOTE | 2018-03-30 09:36 | NUR ---
Received SBAR report from maintenance technician 3rd shift RN. Pt A/Ox1-2, responds to verbal and tactile stimuli. No SOB or acute distress noted, currently on RA sat of 91% with no increase work of breathing. Obtained discharge order from Dr. So. Orders noted and carried out. Pt. schedule to d/c to [facility] ([facility] Administered all due medications as ordered and tolerated well. On PO ATB for UTI no ASE noted. Fall precautions in place. Bed in locked and lowest position with side rails up x2, alarm on. Call light within reach. Will continue to monitor.
--- NOTE | 2018-03-30 16:12 | NUR ---
Discharge Note: 0900 Obtained discharge orders from Dr. So, deemed pt. safe for discharge today 03/30/18. Orders noted and carried out. Routine round with pt; pt. remain cooperative. Lungs sounds clear to auscultation bilaterally, no respiratory distress. Heart with regular rate and rhythm, no murmur, rub or gallop. Abdomen soft, non-tender, bowel sounds present in all 4 quadrants. Pt. voiding well. Conjunctivae clear, PERRL. 0930 Dr. Ochoa onsite, came and seen pt. and provided RX. 1230 Resident served with lunch as ordered and tolerated well. PVT caregiver by bedside for support. 1330 GEAR CUTTING MACHINE OPERATOR Leigh on-site, evaluated pt. RT. buttock and wrote RX for acyclovir oin. 1500 DTR (Dayna) arrived on-site. All belongings are prepared. Resident medication reviewed and discussed with R/P and Pt. Inventory done all accountable for. Instructed resident to follow up with PCP and continue medication regimen as prescribed. Pt. teaching provided which include but not limited to meds administration, risk of fall, DM mgt, skin mgt. Returned Premarin (pt. provided med) back to pt. Gave pt and r/p information regarding returning to community. No further questions from the pt and r/p about the discharge instructions at this time. Verbalized clear understanding. Pt. packet which includes all RX given to R/P. Discharge documents signed by DTRRose Mcintosh per pt. request. 1550 Transportation arrived on site ([facility]), provided receiving staff report with no further question. 1610 Pt. left the facility via gurney and d/c to [facility] with home health to provide PT/OT/ST/RN. made aware of pt discharge.
[2018-03-30 16:22] VITALS: BP 108/53
== END 2018-03-30 14:10 | disposition home health service (06) | DRG 689 ==
PROVIDERS: ADMIT Physical Medicine & Rehabilitation Pain Medicine; ATTEND Physical Medicine & Rehabilitation Pain Medicine
DX: N39.0 Urinary tract infection, site not specified (principal); G93.41 Metabolic encephalopathy; N17.0 Acute kidney failure with tubular necrosis; E44.1 Mild protein-calorie malnutrition; E03.9 Hypothyroidism, unspecified; E11.22 Type 2 diabetes mellitus with diabetic chronic kidney disease; I12.9 Hypertensive chronic kidney disease with stage 1 through stage 4 chronic kidney disease, or unspecified chronic kidney disease; N18.9 Chronic kidney disease, unspecified; G20 Parkinson's disease; G89.29 Other chronic pain; J44.9 Chronic obstructive pulmonary disease, unspecified; I25.10 Atherosclerotic heart disease of native coronary artery without angina pectoris; Z96.653 Presence of artificial knee joint, bilateral; R26.2 Difficulty in walking, not elsewhere classified; R53.1 Weakness; M54.5 Low back pain; Z91.81 History of falling; Z88.2 Allergy status to sulfonamides; C44.722 Squamous cell carcinoma of skin of right lower limb, including hip; B00.9 Herpesviral infection, unspecified
CPT/HCPCS: 36415; 71045; 83735; 84100; 85025; 92526; 92610; 97110; 97112; 97116; 97165; 97530; 97535; A4663; A9150; J1815